=== PATIENT | female | born 1955 | race Caucasian/White ===

== ENCOUNTER 2017-02-15 17:01 | Inpatient (IN) | payer OTHER ==
[~2017-02-15] VITALS: Ht 152.4 cm; Wt 80.7 kg
[2017-02-15] MEDS ORDERED: SODIUM CHLORIDE 0.9% 1,000ML IVBOLUS ONE ×2 (17:30→18:30)
[2017-02-15] MEDS ORDERED: CIPROFLOXACIN/PMX 400MG/200ML 200 ML ONE (17:43)
[2017-02-15] MEDS ORDERED: METRONIDAZOLE PMX 500MG/100ML 100 ML ONE (17:43)
[2017-02-15 17:55] LABS: ASPARTATE AMINO TRANSFERASE 28 U/L (15-37); BLOOD UREA NITROGEN 21 mg/dL (7-18)
[2017-02-15] MEDS: CIPROFLOXACIN/PMX 400MG/200ML 100 ML IVPB ONE ×2 (18:11→18:49)
[2017-02-15] MEDS ORDERED: SODIUM CHLORIDE FLUSH 10ML SYR IVF ONE (18:30)
[2017-02-15] MEDS ORDERED: METRONIDAZOLE PMX 500MG/100ML 100 ML IVPB ONE (19:00)
[2017-02-15] MEDS ORDERED: IMMODIUM (19:04)
[2017-02-15] MEDS ORDERED: LANS30CA PO (19:04)
[2017-02-15] MEDS ORDERED: LEVO88TA2 PO (19:04)
[2017-02-15] MEDS ORDERED: ZOLP-413 PO (19:04)
[2017-02-15] MEDS ORDERED: AMLO-472 PO (19:04)
[2017-02-15] MEDS ORDERED: ROSU10TA PO (19:04)
[2017-02-15] MEDS ORDERED: SODIUM CHLORIDE 0.9% 1,000 ML IV ONE (19:59)
[2017-02-15] MEDS ORDERED: MORPHINE SULFATE 4 MG/ML, 1ML IVPush PRN (20:00)
[2017-02-15] MEDS ORDERED: ONDANSETRON 2MG/ML, 2ML IVPush PRN (20:00)
[2017-02-15] MEDS ORDERED: ACETAMINOPHEN 325 MG TABLET PO PRN (21:00)
[2017-02-15] MEDS: ZOLPIDEM 5MG TABLET PO SCH (22:49)
[2017-02-15] MEDS: NS + 20MEQ KCL 1,000 ML IV SCH (22:50)
[2017-02-15 23:14] VITALS: BP 154/118
[2017-02-16 01:01] VITALS: BP 138/92
[2017-02-16 01:04] VITALS: BP 138/92
[2017-02-16] MEDS: METRONIDAZOLE PMX 500MG/100ML 100 ML IV SCH ×3 (03:53→19:52)
[2017-02-16] MEDS: morphine SULFATE 10 MG/ML, 1ML IVPush PRN ×2 (03:53→04:34)
[2017-02-16 05:53] LABS: BLOOD UREA NITROGEN 14 mg/dL (7-18)
[2017-02-16] MEDS ORDERED: ENALAPRILAT 1.25 MG/ML, 2ML IV PRN (06:30)
[2017-02-16] MEDS: LEVOTHYROXINE 88 MCG TABLET PO SCH (06:35)
[2017-02-16] MEDS: CIPROFLOXACIN/PMX 400MG/200ML 200 ML IV SCH ×2 (06:36→06:38)
[2017-02-16 09:11] VITALS: BP 134/81
[2017-02-16] MEDS: NS + 20MEQ KCL 1,000 ML IV SCH ×3 (09:12→20:43)
[2017-02-16] MEDS: OMEPRAZOLE 20 MG CAPSULE.DR PO SCH (09:12)
[2017-02-16] MEDS: LOSARTAN 25MG TABLET PO SCH (09:13)
[2017-02-16] MEDS: AMLODIPINE 5 MG TABLET PO SCH (09:13)
[2017-02-16 13:17] VITALS: BP 118/75
[2017-02-16 13:21] VITALS: BP 119/76
[2017-02-16] MEDS: ENOXAPARIN 40 MG/0.4 ML SQ SCH (18:12)
[2017-02-16 19:23] VITALS: BP 109/74
[2017-02-16] MEDS: ZOLPIDEM 5MG TABLET PO SCH (20:58)
[2017-02-16] MEDS: ONDANSETRON ODT 4 MG PO PRN (21:29)
[2017-02-16] MEDS ORDERED: ZOLPIDEM 5MG TABLET PO ONE (22:00)
[2017-02-17 03:40] VITALS: BP 107/70
[2017-02-17] MEDS: METRONIDAZOLE PMX 500MG/100ML 100 ML IV SCH ×2 (04:02→12:00)
[2017-02-17] MEDS: LEVOTHYROXINE 88 MCG TABLET PO SCH (05:50)
[2017-02-17] MEDS: CIPROFLOXACIN/PMX 400MG/200ML 200 ML IV SCH (06:37)
[2017-02-17 07:58] VITALS: BP 115/75
[2017-02-17] MEDS: OMEPRAZOLE 20 MG CAPSULE.DR PO SCH (08:35)
[2017-02-17] MEDS: ONDANSETRON ODT 4 MG PO PRN (08:36)
[2017-02-17] MEDS: AMLODIPINE 5 MG TABLET PO SCH (08:36)
[2017-02-17] MEDS: LOSARTAN 25MG TABLET PO SCH (08:36)
[2017-02-17] MEDS: NS + 20MEQ KCL 1,000 ML IV SCH (12:00)
[2017-02-17 13:00] VITALS: BP 123/79
[2017-02-17] MEDS: metroNIDAZOLE 500 MG TABLET PO SCH ×2 (13:53→20:46)
[2017-02-17] MEDS: CIPROFLOXACIN 500 MG TABLET PO SCH (13:53)
[2017-02-17] MEDS: ENOXAPARIN 40 MG/0.4 ML SQ SCH (17:00)
[2017-02-17 19:13] VITALS: BP 158/84
[2017-02-17] MEDS: ZOLPIDEM 5MG TABLET PO SCH (20:46)
[2017-02-18] MEDS: CIPROFLOXACIN 500 MG TABLET PO SCH (01:46)
[2017-02-18] MEDS: metroNIDAZOLE 500 MG TABLET PO SCH ×2 (01:46→08:14)
[2017-02-18 02:45] VITALS: BP 113/73
[2017-02-18] MEDS: LEVOTHYROXINE 88 MCG TABLET PO SCH (06:03)
[2017-02-18 07:56] VITALS: BP 117/75
[2017-02-18] MEDS: LOSARTAN 25MG TABLET PO SCH (08:13)
[2017-02-18] MEDS: AMLODIPINE 5 MG TABLET PO SCH (08:13)
[2017-02-18] MEDS: OMEPRAZOLE 20 MG CAPSULE.DR PO SCH (08:14)
[2017-02-18] MEDS ORDERED: METR500T PO (10:44)
[2017-02-18] MEDS ORDERED: CIPR500T87 PO (10:44)
[2017-02-18] MEDS ORDERED: HYDR-3241 PO (10:44)
== END 2017-02-18 13:50 | disposition home or self-care (01) | DRG 872 ==
LOC: ED 19:07 → EDIP 19:59 → 3NE 22:02
PROVIDERS: ADMIT Family Medicine; ATTEND Family Medicine
DX: A41.9 Sepsis, unspecified organism (principal); K57.20 Diverticulitis of large intestine with perforation and abscess without bleeding; N17.9 Acute kidney failure, unspecified; G47.00 Insomnia, unspecified; E78.5 Hyperlipidemia, unspecified; E03.9 Hypothyroidism, unspecified; I12.9 Hypertensive chronic kidney disease with stage 1 through stage 4 chronic kidney disease, or unspecified chronic kidney disease; N18.9 Chronic kidney disease, unspecified; Z87.891 Personal history of nicotine dependence; Z82.49 Family history of ischemic heart disease and other diseases of the circulatory system; K21.9 Gastro-esophageal reflux disease without esophagitis; Z88.2 Allergy status to sulfonamides
CPT/HCPCS: 36415; 80048; 80053; 83605; 84145; 85025; 87040; 87324; 96361; 96365; 96367; J0744; J1650; J3480; Q0162; J2270; J7030

== ENCOUNTER → 2017-02-15 | Outpatient (CLI) | payer OTHER ==
[~2017-02-15] MED LIST: AMLO-472 PO; IMMODIUM; LANS30CA PO; LEVO88TA2 PO; OMNIPAQUE 350 MG/ML, 100ML BOTTLE ONE; ROSU10TA PO; ZOLP-413 PO
== END | disposition home or self-care (01) ==
LOC: RAD 14:13
PROVIDERS: ATTEND Physician Assistant
DX: K57.92 Diverticulitis of intestine, part unspecified, without perforation or abscess without bleeding (principal); K76.0 Fatty (change of) liver, not elsewhere classified; L02.211 Cutaneous abscess of abdominal wall
CPT/HCPCS: 36415; 74177; 82565; Q9967